=== PATIENT | female | born 1940 | race Caucasian/White ===

== ENCOUNTER 2017-11-04 16:59 | Emergency (ER) | payer OTHER, BC ==
[~2017-11-04] VITALS: Ht 165.1 cm; Wt 74.8 kg
[2017-11-04] MEDS ORDERED: CORICIDIN HBP1 EAC2 PO (17:38)
[2017-11-04] MEDS ORDERED: PREDNISONE 20 M20 MG PO (17:38)
[2017-11-04] MEDS ORDERED: SYNTHROID88 MCG PO (17:41)
[2017-11-04] MEDS ORDERED: TYLENOL325 MG PO (17:41)
[2017-11-04] MEDS ORDERED: CYCLOBENZAPRINE5 MG PO (17:41)
[2017-11-04] MEDS ORDERED: ASPIR 8181 MG PO (17:41)
[2017-11-04] MEDS ORDERED: BENTYL 20 MG TA20 M1 PO (17:41)
[2017-11-04] MEDS ORDERED: PROAIR HFA8.5 GM (17:42)
[2017-11-04] MEDS ORDERED: PRAVACHOL20 MG PO (17:42)
== END 2017-11-04 17:45 | disposition home or self-care (01) ==
LOC: ER 16:59
DX: J06.9 Acute upper respiratory infection, unspecified (principal); E11.9 Type 2 diabetes mellitus without complications; J44.9 Chronic obstructive pulmonary disease, unspecified; Z90.710 Acquired absence of both cervix and uterus; Z98.890 Other specified postprocedural states; Z88.5 Allergy status to narcotic agent; Z88.2 Allergy status to sulfonamides

== ENCOUNTER → 2017-11-14 | Outpatient (CLI) | payer OTHER, BC ==
[~2017-11-14] MED LIST: ASPIR 8181 MG PO; BENTYL 20 MG TA20 M1 PO; CORICIDIN HBP1 EAC2 PO; CYCLOBENZAPRINE5 MG PO; PRAVACHOL20 MG PO; PREDNISONE 20 M20 MG PO; PROAIR HFA8.5 GM; SYNTHROID88 MCG PO; TYLENOL325 MG PO
== END ==
LOC: RAD 13:59
DX: R05 Cough (principal)